=== PATIENT | male | born 1995 | race Caucasian/White ===

== ENCOUNTER 2016-09-23 12:02 | Emergency (ER) | payer MEDICAID, SELFPAY ==
[~2016-09-23] VITALS: Ht 175.3 cm; Wt 61.2 kg
[2016-09-23] MEDS ORDERED: VITAD1000T PO (12:25)
[2016-09-23] MEDS ORDERED: MULT1TAB18 PO (12:25)
[2016-09-23] MEDS ORDERED: PROT1TAB2 PO (15:03)
[2016-09-23 15:05] VITALS: BP 121/62
[2016-09-23] MEDS ORDERED: GI COCKTAIL 50ML BTL(HYOSCYAMINE/MAALOX/LIDOCAINE VISCOUS)(1:3:1) PO ONE (15:15)
--- NOTE | 2016-09-24 20:05 | ECGEPIP ---
Stationary ECG Study [facility] - ED Test Date: 2016-09-23 Pat Name: DANNY RUSSO Department: Room: - Gender: M Business Controller: : [id number] Requested By: WILIAM Landon PA-C Order Number: [id number] Reading MD: Vicente Burrell Measurements Intervals [place] Rate: 62 P: 68 [place]: 140 QRS: 86 QRSD: 88 T: 56 QT: 361 QTc: 369 Interpretive Statements SINUS RHYTHM WITH SINUS ARRHYTHMIA NO OLD ECG TO COMPARE TO Electronically Signed On 09-24-2016 20:05:04 EST by Vicente Burrell
== END 2016-09-23 15:24 | disposition home or self-care (01) ==
LOC: M ED 14:45
DX: K21.9 Gastro-esophageal reflux disease without esophagitis (principal); Z87.891 Personal history of nicotine dependence; Z88.2 Allergy status to sulfonamides; Z88.0 Allergy status to penicillin; Z79.899 Other long term (current) drug therapy

== ENCOUNTER 2018-03-10 13:25 | Emergency (ER) | payer SELFPAY ==
[2018-03-10] MEDS: NS 1,000 ML IV (15:32)
[2018-03-10 15:34] LABS: BASO # 0.1 10^3/uL (0.0-0.2); BASO % 0.7 % (0.0-1.0); EOS % 0.3 % (0.0-3.0); HEMATOCRIT 42.5 % (42.0-52.0); HEMOGLOBIN 14.8 g/dl (13.5-17.5); IMMATURE GRANULOCYTE % 0.2 % (0-3.0); LYMPH # 1.8 10^3/uL (1.5-6.5); LYMPH % 16.9 % (24.0-44.0); MEAN CORPUSCULAR HEMOGLOBIN 31.9 pg (27.0-33.0); MEAN CORPUSCULAR HGB CONC 34.8 g/dl (32.0-36.5); MEAN CORPUSCULAR VOLUME 91.6 fl (80.0-96.0); MONO # 0.7 10^3/uL (0.0-0.8); MONO % 6.2 % (0.0-5.0); NEUTROPHILS # 8.1 10^3/uL (1.8-7.7); NEUTROPHILS % 75.7 % (36.0-66.0); PLATELET COUNT, AUTOMATED 224 10^3/uL (150-450); RED BLOOD COUNT 4.64 10^6/uL (4.30-6.10); RED CELL DISTRIBUTION WIDTH 11.9 % (11.5-14.5); WHITE BLOOD COUNT 10.7 10^3/uL (4.0-10.0)
[2018-03-10 15:58] LABS: ANION GAP 7 MEQ/L (8-16); BLOOD UREA NITROGEN 14 MG/DL (7-18); CALCIUM LEVEL 9.5 MG/DL (8.5-10.1); CARBON DIOXIDE LEVEL 28 MEQ/L (21-32); CHLORIDE LEVEL 106 MEQ/L (98-107); CPK CREATINE PHOSPHOKINASE 128 U/L (39-308); CREATININE FOR GFR 0.94 MG/DL (0.70-1.30); FREE T4 1.18 NG/DL (0.76-1.46); GLOMERULAR FILTRATION RATE > 60.0 (>60); GLUCOSE, FASTING 96 MG/DL (70-100); POTASSIUM SERUM 3.9 MEQ/L (3.5-5.1); SODIUM LEVEL 141 MEQ/L (136-145); TROPONIN I < 0.02 NG/ML (< 0.10)
[2018-03-10 16:04] LABS: CK-MB VALUE MASS < 1.0 NG/ML (<3.6); MB/CK RELATIVE INDEX 0.78 (< OR =4)
[2018-03-10 16:16] LABS: D-DIMER QUANT 233.4 ng/ml (<500)
== END 2018-03-10 16:49 | disposition home or self-care (01) ==
LOC: M ED 13:25
DX: R07.9 Chest pain, unspecified (principal); K21.9 Gastro-esophageal reflux disease without esophagitis; Z87.891 Personal history of nicotine dependence
CPT/HCPCS: 71046

== ENCOUNTER 2022-06-23 13:37 | Emergency (ER) | payer MEDICAID, OTHER, SELFPAY ==
[~2022-06-23] VITALS: Ht 175.3 cm; Wt 103.0 kg
[~2022-06-23 13:37] MED LIST: ACET-683 PO; CALC-190 PO; CHOL100029 PO; MULT1TAB18 PO; PROT1TAB2 PO
[2022-06-23 16:04] LABS: BASO # 0.1 10^3/uL (0.0-0.2); EOS # 0.3 10^3/uL (0.0-0.5); EOS % 2.9 % (0.0-3.0); HEMATOCRIT 48.4 % (42.0-52.0); HEMOGLOBIN 16.6 g/dl (13.5-17.5); LYMPH # 1.6 10^3/uL (1.5-5.0); LYMPH % 15.9 % (24.0-44.0); MEAN CORPUSCULAR HEMOGLOBIN 32.9 pg (27.0-33.0); MEAN CORPUSCULAR HGB CONC 34.3 g/dl (32.0-36.5); MONO # 0.9 10^3/uL (0.0-0.8); MONO % 8.8 % (2.0-8.0); NEUTROPHILS # 6.9 10^3/uL (1.5-8.5); NEUTROPHILS % 71.2 % (36.0-66.0); PLATELET COUNT, AUTOMATED 237 10^3/uL (150-450); RED BLOOD COUNT 5.04 10^6/uL (4.30-6.10); WHITE BLOOD COUNT 9.7 10^3/uL (4.0-10.0)
[2022-06-23 16:33] LABS: LIPASE 41 U/L (12-53)
[2022-06-23 16:35] LABS: ALKALINE PHOSPHATASE 67 U/L (46-116); ALT/SGPT 177 U/L (7.0-40); AST/SGOT 115 U/L (<34); BILIRUBIN,DIRECT 0.1 MG/DL (<0.4); BILIRUBIN,TOTAL 0.4 MG/DL (0.3-1.2); BLOOD UREA NITROGEN 10 MG/DL (9-23); CALCIUM LEVEL 9.6 MG/DL (8.5-10.1); CARBON DIOXIDE LEVEL 28 MMOL/L (20-31); CHLORIDE LEVEL 103 MMOL/L (98-107); CREATININE FOR GFR 0.81 MG/DL (0.70-1.30); GLOMERULAR FILTRATION RATE > 60.0 (>60); GLUCOSE, FASTING 99 MG/DL (60-100); POTASSIUM SERUM 3.9 MMOL/L (3.5-5.1); SODIUM LEVEL 138 MMOL/L (136-145); TOTAL PROTEIN 7.2 G/DL (5.7-8.2)
[2022-06-23] MEDS ORDERED: KETOROLAC 60MG 2ML VIAL IM ONE (18:10)
[2022-06-23] MEDS ORDERED: LIDOCAINE 5% (LIDODERM) PATCH TD ONE (18:10)
[2022-06-23] MEDS ORDERED: methocarbamoL 750 MG TAB PO ONE (18:10)
[2022-06-23 19:05] LABS: HEPATITIS B SURFACE ANTIGEN NEGATIVE (NEGATIVE)
[2022-06-23 19:26] LABS: HEPATITIS C VIRUS ABY INDEX 0.1 INDEX (<0.8)
[2022-06-23 19:27] LABS: HEPATITIS B CORE ANTIBODY IGM NEGATIVE (NEGATIVE)
[2022-06-23] MEDS ORDERED: METH-1165 PO (19:39)
[2022-06-23] MEDS ORDERED: NAPR-837 PO (19:39)
[2022-06-23] MEDS ORDERED: ASPE4PAD TOP (19:39)
[2022-06-23 19:44] VITALS: BP 130/85
== END 2022-06-23 20:09 | disposition home or self-care (01) ==
LOC: M ED 13:37
DX: R10.12 Left upper quadrant pain (principal); M54.6 Pain in thoracic spine; F17.200 Nicotine dependence, unspecified, uncomplicated; Z88.1 Allergy status to other antibiotic agents; Z88.2 Allergy status to sulfonamides; Z79.899 Other long term (current) drug therapy; Z79.891 Long term (current) use of opiate analgesic
CPT/HCPCS: 74018; 80048; 80076; 83690; 85025; 86705; 86709; 86803; 87340; 96372; 99284; J1885